=== PATIENT | female | born 2000 | race African-American/Black ===

== ENCOUNTER 2021-11-17 14:35 | Emergency (ER) | payer SELFPAY ==
[~2021-11-17] VITALS: Ht 167.6 cm; Wt 73.0 kg
[2021-11-17] MEDS ORDERED: SODIUM CHLORIDE 0.9% 1,000 ML IV ONE (16:15)
[2021-11-17] MEDS ORDERED: NALOXONE HCL 0.4 MG/ML 1ML VIAL IV ONE (16:30)
[2021-11-17 17:13] LABS: BASOPHILS % 0.7 % (0.0-2.0); EOSINOPHILS % 1.5 % (0.0-5.0); HEMATOCRIT. 35.9 % (36.0-48.0); HEMOGLOBIN. 12.2 g/dL (12.0-16.0); LYMPHOCYTES % 28.9 % (20.0-50.0); MEAN CORPUSCULAR HEMOGLOBIN 28.5 pg (28.0-32.0); MEAN CORPUSCULAR VOLUME 84.2 fL (81.0-99.0); MEAN PLATELET VOLUME 7.9 fl (7.4-10.4); MONOCYTES % 6.1 % (2.0-8.0); NEUTROPHILS % 62.8 % (40.0-76.0); PLATELET 485 x1000/uL (130-400); RED BLOOD CELL COUNT 4.27 mill/uL (4.2-5.4); RED CELL DISTRIBUTION WIDTH 13.2 % (11.6-14.6)
[2021-11-17 17:14] LABS: CHLORIDE 109 mEq/L (98-107); HCG SCREEN NEGATIVE
[2021-11-17 17:15] LABS: CLARITY URINE CLOUDY (CLEAR); COLOR URINE DARK YELLOW (YELLOW); KETONES URINE TRACE (NEGATIVE); LEUKOCYTE ESTERASE URINE 2+ (NEGATIVE); NITRITE URINE POSITIVE (NEGATIVE); OCCULT BLOOD URINE NEGATIVE (NEGATIVE); PROTEIN URINE TRACE (NEGATIVE); SPECIFIC GRAVITY URINE 1.029 (1.005-1.030)
[2021-11-17 17:30] LABS: ETHANOL BLOOD < 10 mg/dL
[2021-11-17] MEDS ORDERED: CEFTRIAXONE 1 G PREMIX 50 ML IV ONE (17:30)
[2021-11-17 17:40] LABS: *BARBITURATES SCREEN URINE NEGATIVE (NEGATIVE); *BENZODIAZEPINES SCREEN URINE NEGATIVE (NEGATIVE); *COCAINE SCREEN URINE NEGATIVE (NEGATIVE); METHADONE URINE SCREEN NEGATIVE (NEGATIVE); OPIATES URINE SCREEN NEGATIVE (NEGATIVE); PHENCYCLIDINE URINE SCREEN NEGATIVE (NEGATIVE)
[2021-11-17 17:43] LABS: *AMPHETAMINES SCREEN URINE PRESUMTIVE POSITIVE (NEGATIVE); CANNABINOID URINE SCREEN PRESUMTIVE POSITIVE (NEGATIVE)
[2021-11-17] MEDS ORDERED: DEXTROSE 50% WATER 50ML SYRINGE IV ONE (18:15)
[2021-11-17] MEDS ORDERED: DOCUSATE SODIUM 100MG CAPSULE PO ONE (18:15)
[2021-11-18] MEDS ORDERED: HALOPERIDOL LACTATE 5MG/ML VIAL IM STA (09:12)
[2021-11-18] MEDS ORDERED: LORAZEPAM 2MG/ML CPJ IM STA (09:12)
[2021-11-18] MEDS ORDERED: CEFTRIAXONE 1 G PREMIX 50 ML IV ONE (18:00)
[2021-11-18] MEDS ORDERED: CEPHALEXIN 250MG CAPSULE PO ONE (18:45)
[2021-11-19] MEDS ORDERED: CEPHALEXIN 250MG CAPSULE PO ONE ×3 (07:30→13:00)
[2021-11-19] MEDS: CEPHALEXIN 250MG CAPSULE PO SCH ×2 (18:42→21:00)
[2021-11-20] MEDS ORDERED: CEPH500C2 MT (08:44)
[2021-11-20] MEDS: CEPHALEXIN 250MG CAPSULE PO SCH (09:00)
[2021-11-20 10:24] VITALS: BP 111/62
== END 2021-11-20 10:31 | disposition home or self-care (01) ==
LOC: ER 14:49
DX: T40.412A Poisoning by fentanyl or fentanyl analogs, intentional self-harm, initial encounter (principal); R45.851 Suicidal ideations; E16.2 Hypoglycemia, unspecified; F19.10 Other psychoactive substance abuse, uncomplicated; N39.0 Urinary tract infection, site not specified; I48.91 Unspecified atrial fibrillation; T65.892A Toxic effect of other specified substances, intentional self-harm, initial encounter; Y92.9 Unspecified place or not applicable; Z20.822 Contact with and (suspected) exposure to COVID-19
CPT/HCPCS: 36415; 71045; 80053; 80305; 80307; 80320; 80329; 81003; 81025; 82962; 84703; 85025; 93005; 96361; 96365; 96372; 96375; 99285; J0696; J1630; J2060; J7030; U0003; U0005; G0480